=== PATIENT | female | born 2000 | race Caucasian/White ===

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

== ENCOUNTER 2019-08-08 13:56 | Inpatient (IN) ==
[2019-08-08] MEDS ORDERED: MoRPHine SULFATE 4 MG/ML 1 ML CARP\\VIAL IV STA (14:22)
[2019-08-08] MEDS ORDERED: ONDANSETRON INJ 2 MG/ML 2 ML VIAL IV STA ×2 (14:22→15:18)
[2019-08-08] MEDS ORDERED: SODIUM CHLORIDE 0.9% 1000ML 1,000 ML IV ONE ×2 (14:22→15:18)
--- NOTE | 2019-08-08 14:46 | Emergency Department Note ---
Entered by Seble Daily acting as a scribe for Margarito Oliva MD History of Present Illness General Chief complaint: Abdominal Pain Stated complaint: VOMITING,ABDOMINAL PAIN Time Seen by Provider: 08/08/19 14:08 Source: family (father) History of Present Illness Provider complaint: abdominal pain Onset (ago): hour(s) (this morning) Location: abdomen Pain Consistency: + constant Maximum Pain Intensity: 10 Relieved By: + none Associated symptoms: + nausea/vomiting The patient is a 18 year old who presents to the Emergency Room with complaints of constant abdominal pain. The patient's father reports that the patient has Prader-Willi syndrome. He states that he found her in her bed with vomiting around her this morning. He reports that she has had nausea and vomiting all afternoon. He states that she has had severe abdominal pain since then. He notes that she does not usually vomit. He mentions that the patient did not eat anything this morning. Home Medications Home Medications Medication Instructions Recorded Confirmed Type calcitriol 0.25 mcg capsule 0.25 mcg PO .q am cap 07/22/18 08/08/19 History gabapentin 300 mg capsule 300 mg PO TID 07/22/18 08/08/19 History levothyroxine 50 mcg capsule 50 mcg PO DAILY 07/22/18 08/08/19 History polyethylene glycol 3350 17 See Rx Instructions .ROUTE 05/20/19 08/08/19 Rx gram/dose oral powder .COMPLEX #510 gram cholecalciferol (vitamin D3) 1,000 unit PO DAILY 08/08/19 08/08/19 History [Vitamin D3] multivitamin 1 tab PO DAILY 08/08/19 08/08/19 History risperidone 0.25 mg PO BID 08/08/19 08/08/19 History risperidone 0.5 mg PO BID 08/08/19 08/08/19 History ziprasidone HCl 20 mg PO BID 08/08/19 08/08/19 History Allergies Allergy/AdvReac Type Severity Reaction Status Date / Time No Known Allergies Allergy Verified 08/08/19 14:37 Past Med/Surg History Medical History Autism (Chronic) Headache (Chronic) OCD (obsessive compulsive disorder) (Chronic) Prader-Willi syndrome (Chronic) Scoliosis (Chronic) Family History Father No problems noted. Mother No problems noted. Social History Preferred Language: Serbian Current Living Situation: Family Current Living Situation Comment: Mom, Dad, younger brother Smoking Status: Never smoker Hx Alcohol Use: No Hx Substance Use: No Childhood Exposure to Second-Hand Smoke: No Dental Care, Regularly: Yes Review of Systems See HPI for pertinent positives & negatives. and A total of 10 systems reviewed and were otherwise negative Physical Exam Vital Signs Vital Signs - 24 hr 08/08/19 13:59 08/08/19 14:49 08/08/19 17:05 Temperature 37.9 C H Temperature Source Oral Sepsis Recent Fever Within 48 Hours No Sepsis New/Unexplained Change in Mental Status No Sepsis Action Taken by Nursing No Action Required Pulse Rate 93 H Pulse Rate [Left Finger] 72 74 Respiratory Rate 20 15 25 H Respiratory Effort / Characteristics Non-Labored Non-Labored Respiratory Depth Normal Normal Respiratory Pattern Regular Regular Blood Pressure 108/77 Blood Pressure [Left Arm] 110/81 118/80 Blood Pressure Mean 87 Blood Pressure Mean [Left Arm] 90 92 Pulse Oximetry 98 97 94 Oxygen Delivery Method Room Air Room Air Room Air General: Non-ill appearing young female screaming and complaining of pain. HEENT: Normal cephalic atraumatic. Pupils are equal round and reactive to light. Extraocular movements are intact. Oropharynx is pink with moist mucous m embranes. No swelling of the mouth lips or tongue. Neck: Supple with a midline trachea. No meningeal signs or stiffness, no JVD or bruits. No Stridor. Chest: Clear to auscultation bilaterally. No wheezes or rhonchi. No increased work of breathing. Heart: regular rate and rhythm. Abdomen: Soft nontender, nondistended without rebound guarding or rigidity. Extremities: No cyanosis clubbing or edema. No calf tenderness or asymmetry Spine/Back. Non tender to palpation. No CVA tenderness Skin: Good turgor without rashes. Neurologic exam: Cranial nerves two through 12 are intact. Motor and sensation are intact and symmetrical throughout. Course 1413: The patient was evaluated in room C7, and a complete history and physical examination were performed. 1510: I reevaluated the patient and updated her family on her results. She is currently feeling better and is talking more. 1515: I reevaluated the patient and the patient is feeling better, I gave the patient fluids and anti-nausea medication. 1600: I reevaluated the patient and she appears comfortable. I ordered an NG tube and discussed with her father, possible hospitals for transfer. 1626: I discussed the patient's case with Dr. Block- General Surgery, he recommends that the patient be admitted to medicine. 1658: I discussed the patient's case with Dr. Garcia- [facility] Hospitalist, she will accept the patient for further evaluation. 1715: The NG tube was placed and the patient tolerated it well. There was a large amount of product and the patient vomited. 1755: I reevaluated the patient and there was over a liter of vomit in the NG tube, the family wants me to talk to a Prader-willi specialist. Administered Medications Ioversol (Optiray 320 100ml) 92 ml IV ONCE PRN PRN Reason: Interaction Checking Stop: 08/12/19 15:30 Last Admin: 08/08/19 15:31 Dose: 92 ml Documented by: [id number] Discontinued Medications Sodium Chloride (Nss 1000ml) 1,000 mls @ 999 mls/hr IV .Q1H1M ONE Stop: 08/08/19 15:22 Last Infusion: 08/08/19 16:25 Dose: 0 mls/hr Documented by: [id number] Admin: 08/08/19 14:40 Dose: 999 mls/hr Documented by: [id number] Sodium Chloride (Nss 1000ml) 1,000 mls @ 999 mls/hr IV .Q1H1M ONE Stop: 08/08/19 16:18 Last Infusion: 08/08/19 16:51 Dose: 0 mls/hr Documented by: [id number] Admin: 08/08/19 15:44 Dose: 999 mls/hr Documented by: [id number] Morphine Sulfate (Morphine Sulfate) 4 mg IV NOW STA Stop: 08/08/19 14:23 Last Admin: 08/08/19 14:38 Dose: 4 mg Documented by: [id number] Ondansetron HCl (Zofran) 4 mg IV NOW STA Stop: 08/08/19 14:23 Last Admin: 08/08/19 14:38 Dose: 4 mg Documented by: [id number] Ondansetron HCl (Zofran) 4 mg IV NOW STA Stop: 08/08/19 15:19 Last Admin: 08/08/19 15:44 Dose: 4 mg Documented by: [id number] Medical Decision Making Differential Diagnosis Differential diagnoses include but are not limited to dehydration, bowel obstruction, and electrolyte and metabolic abnormality. Medical Records Attestation: I reviewed the patient's medical records. Home Medications Current Medication List: was personally reviewed by me Laboratory Data Attestation: I reviewed the patient's lab results. Result diagrams: 08/08/19 14:36 08/08/19 14:36 Lab Results 08/08/19 08/08/19 08/08/19 Range/Units 14:36 14:36 14:36 WBC 11.61 H (4.8-10.8) K/uL RBC 4.76 (4.2-5.4) M/uL Hgb 14.3 (12.0-16.0) g/dL Hct 43.1 (37-47) % MCV 90.5 (80-100) fL MCH 30.0 (25-34) pg MCHC 33.2 (32-36) g/dL RDW Std Deviation 43.5 (36.4-46.3) fL RDW Coeff of Marlys 13.1 (11.5-14.5) % Plt Count 241 (130-400) K/uL MPV 10.1 (7.4-10.4) fL Immature Gran % (Auto) 0.3 % Neut % (Auto) 90.9 % Lymph % (Auto) 5.3 % [place] % (Auto) 3.4 % Eos % (Auto) 0.0 % Baso % (Auto) 0.1 % Immature Gran # (Auto) 0.03 H (0.00-0.02) K/uL Neut # (Auto) 10.56 H (1.4-6.5) K/uL Lymph # (Auto) 0.61 L (1.2-3.4) K/uL [place] # (Auto) 0.40 (0.11-0.59) K/uL Eos # (Auto) 0.00 (0-0.5) K/uL Baso # (Auto) 0.01 (0-0.2) K/uL Sodium 144 (136-145) mmol/L Potassium 3.2 L (3.5-5.1) mmol/L Chloride 106 (98-107) mmol/L Carbon Dioxide 30 (21-32) mmol/L Anion Gap 8.0 (3-11) BUN 9 (7-18) mg/dl Creatinine 0.69 (0.6-1.2) mg/dl Est Cr Clr Drug Dosing 113.2 ml/min Est GFR ( Amer) 146.3 Est GFR (Non-Af Amer) 126.2 BUN/Creatinine Ratio 13.4 (10-20) Glucose 156 H (70-99) mg/dl Calcium 10.4 H (8.5-10.1) mg/dl Total Bilirubin 0.4 (0.2-1) mg/dl AST 12 L (15-37) U/L ALT 19 (12-78) U/L Alkaline Phosphatase 108 (45-117) U/L Total Protein 9.2 H (6.4-8.2) gm/dl Albumin 4.5 (3.4-5.0) gm/dl Globulin 4.7 H (2.5-4.0) gm/dl Albumin/Globulin Ratio 1.0 (0.9-2) Lipase 189 (73-393) U/L HCG, Qual Negative (Negative) Imaging Data Radiologist's Impression: Radiology results as stated below per my review and the radiologist's interpretation: CT abd pelvis IV con only CLINICAL HISTORY: 18 years-old Female presenting with mid abdominal pain, clinical concern for bowel obstruction. TECHNIQUE: Multidetector CT of the abdomen and pelvis was performed after the administration of intravenous contrast. IV contrast: 93 mL of Optiray 320. One or more dose lowering techniques were used consistent with the principles of ALARA (as low as reasonably achievable), including automatic exposure control, mA or kV adjustment to individual patient size, and/or use of iterative reconstruction. COMPARISON: None. CT DOSE (mGy.cm): The estimated cumulative dose is 268.93 mGy.cm. FINDINGS: Animal Pathologist topogram: Moderate levoscoliosis centered at the lower thoracic spine. Lung bases: Normal heart size. No pericardial or pleural effusion. Minimal patchy groundglass opacity at the lung bases with mosaic attenuation, possibly dependent changes. Liver: Normal morphology. No liver lesion. Patent hepatic vasculature. Biliary: No intrahepatic or extrahepatic biliary ductal dilatation. Normal gallbladder. Pancreas: Moderate parenchymal atrophy. Spleen: Normal. Adrenal glands: Normal. Kidneys and ureters: Normal. No hydronephrosis. Bladder: Circumferential bladder wall thickening. Pelvic organs: Uterus appears atrophic. Ovaries appears severely atrophic. This is unexpected for the patient's age. Bowel: Moderate stool burden throughout normal caliber colon though the left colon is decompressed. The appendix is normal. The stomach is severely distended. Circumferential wall thickening of the distal esophagus. The proximal duodenum is also distended to the level of the superior mesenteric artery, where there is focal stenosis. An abnormally acute SMA angle is noted. Peritoneal cavity: No free fluid or intraperitoneal gas. Lymph nodes: No enlarged lymph nodes in the abdomen or pelvis. Vasculature: Aorta and IVC patent and normal in caliber. Abdominal wall: Normal. Musculoskeletal: Scoliotic curvature of the spine. IMPRESSION: 1. Severely distended stomach and proximal duodenum with abrupt transition point at the level of the SMA. This is evidence of SMA syndrome. Given the presence of scoliosis, it should be noted that application of body casts can be associated with SMA syndrome. 2. Atrophic appearing uterus and ovaries. This may suggest a congenital anomaly. Consider outpatient pelvic ultrasound for further assessment. 3. Circumferential bladder wall thickening. This could be due to underdistention or cystitis. Correlate with urinalysis. 4. Scoliosis. Electronically signed by: Amado Betancourt M.D. 08/08/2019 3:52 PM Blood Pressure Blood Pressure Findings: Normal blood pressure Blood Pressure Disposition: did not require urgent referral MDM Narrative This patient comes in as described above. She was placed in room C7. She is here for treatment and evaluation of abdominal pain and vomiting. She does have history of Prader-Willi and does not typically vomit. She does have a high pain tolerance. She is difficult to assess her as she is writhing around in pain. Her abdomen does not appear to be rigid. I did order IV access as well as a liter fluid boluses and morphine 4 mg IV and Zofran 4 mg IV as well as blood work. She was reassessed. She looks quite a bit better. She is now awake and conversant. She still does have some nausea. Her white counts only mildly elevated. Potassium is mildly low but she has no other significant electrolyte or metabolic abnormalities nothing to suggest liver gallbladder pancreas disease. I did order a CT scan with IV contrast. It shows significant dilation and significant distended stomach and proximal duodenum with abrupt transition point level SMA consistent with SMA syndrome. I discussed this with Dr. Osuna, our surgeon on-call, who recommended NG tube and hydration. Consult Dr. Garcia and saw the patient in the ER as well. I also talked to Dr. Bill Sauceda [phone] who is on-call for the Prader-Willi syndrome foundation. He had several recommendations. He agreed with the treatment that we were doing in terms of the NG tube placement and fluids. He did recommend if the patient gets worse in any way to have a low threshold to get a CAT scan to rule out perforation. He said that the patients with Prader-Willi have a high pain threshold and also have low muscle tone. He can be reached at the cell phone number above for any further questions throughout the patient stay. We did place an NG tube which produced a large amount of brown emesis. She will be admitted for further treatment and evaluation Impression & Plan Vomiting, Prader-Willi syndrome, Dehydration, Gastrointestinal obstruction Discharge Plan Visit Data Chief Complaint: Abdominal Pain Stated Complaint: VOMITING,ABDOMINAL PAIN ED Provider: Margarito Oliva Discharge Problem: Vomiting, Prader-Willi syndrome, Dehydration, Gastrointestinal obstruction Patient Disposition: Being Evaluated by Hospitalist Forms Stand Alone Forms: My [facility] Prescriptions Prescriptions: No Action calcitriol 0.25 mcg capsule 0.25 mcg PO .q am RF: 0 gabapentin 300 mg capsule 300 mg PO TID RF: 0 levothyroxine 50 mcg capsule 50 mcg PO DAILY RF: 0 polyethylene glycol 3350 17 gram/dose powder See Rx Instructions .ROUTE .COMPLEX Qty: 510 RF: 3 multivitamin Tablet 1 tab PO DAILY RF: 0 risperidone 0.25 mg tablet 0.25 mg PO BID RF: 0 ziprasidone HCl 20 mg capsule 20 mg PO BID RF: 0 risperidone 0.5 mg tablet 0.5 mg PO BID RF: 0 cholecalciferol (vitamin D3) [Vitamin D3] 1,000 unit Capsule 1,000 unit PO DAILY RF: 0 Referrals Referrals: Jania Franklin MD [Primary Care Provider] - The scribe's documentation has been prepared under my direction and personally reviewed by me in its entirety. I confirm that the note above accurately r eflects all work, treatment, procedures, and medical decision making performed by me.
[2019-08-08 14:52] LABS: Basophils # (auto) 0.01 K/uL (0-0.2); Basophils % (auto) 0.1 %; Hematocrit (blood only) 43.1 % (37-47); Hemoglobin 14.3 g/dL (12.0-16.0); Immature Granulocytes # (auto) 0.03 K/uL (0.00-0.02); Immature Granulocytes % (auto) 0.3 %; Lymphocytes # (auto) 0.61 K/uL (1.2-3.4); Lymphocytes % (auto) 5.3 %; Mean Corpuscular Hgb Conc 33.2 g/dL (32-36); Mean Corpuscular Volume 90.5 fL (80-100); Mean Platelet Volume 10.1 fL (7.4-10.4); Monocytes % (auto) 3.4 %; Neutrophils # (auto) 10.56 K/uL (1.4-6.5); Neutrophils % (auto) 90.9 %; Platelet Count 241 K/uL (130-400); RDW Coefficient of Variation 13.1 % (11.5-14.5); RDW Standard Deviation 43.5 fL (36.4-46.3); Red Blood Count 4.76 M/uL (4.2-5.4); White Blood Count 11.61 K/uL (4.8-10.8)
[2019-08-08 15:08] LABS: Albumin Level 4.5 gm/dl (3.4-5.0); BUN Creatinine Ratio 13.4 (10-20); Calcium 10.4 mg/dl (8.5-10.1); Creatinine Clr Calc Pharmacy 113.2 ml/min; Est GFR (African American) 146.3; Est GFR (Non-African American) 126.2; Potassium 3.2 mmol/L (3.5-5.1)
[2019-08-08 15:11] LABS: Bilirubin,Total 0.4 mg/dl (0.2-1); Globulin 4.7 gm/dl (2.5-4.0); Total Protein 9.2 gm/dl (6.4-8.2)
[2019-08-08 15:13] LABS: Pregnancy Test, Serum Negative (Negative)
[2019-08-08] MEDS ORDERED: IOVERSOL 100ml IV PRN (15:31)
--- NOTE | 2019-08-08 15:53 | CT Scan Report ---
CT abd pelvis IV con only CLINICAL HISTORY: 18 years-old Female presenting with mid abdominal pain, clinical concern for bowel obstruction. TECHNIQUE: Multidetector CT of the abdomen and pelvis was performed after the administration of intra venous contrast. IV contrast: 93 mL of Optiray 320. One or more dose lowering techniques were used co nsistent with the principles of ALARA (as low as reasonably achievable), including automatic exposure control, mA or kV adjustment to individual patient size, and/or use of iterative reconstruction. COMPARISON: None. CT DOSE (mGy.cm): The estimated cumulative dose is 268.93 mGy.cm. FINDINGS: Overedge Machine Operator topogram: Moderate levoscoliosis centered at the lower thoracic spine. Lung bases: Normal heart size. No pericardial or pleural effusion. Minimal patchy groundglass opacity at the lung bases with mosaic attenuation, possibly dependent changes. Liver: Normal morphology. No liver lesion. Patent hepatic vasculature. Biliary: No intrahepatic or extrahepatic biliary ductal dilatation. Normal gallbladder. Pancreas: Moderate parenchymal atrophy. Spleen: Normal. Adrenal glands: Normal. Kidneys and ureters: Normal. No hydronephrosis. Bladder: Circumferential bladder wall thickening. Pelvic organs: Uterus appears atrophic. Ovaries appears severely atrophic. This is unexpected for the patient's age. Bowel: Moderate stool burden throughout normal caliber colon though the left colon is decompressed. T he appendix is normal. The stomach is severely distended. Circumferential wall thickening of the dist al esophagus. The proximal duodenum is also distended to the level of the superior mesenteric artery, where there is focal stenosis. An abnormally acute SMA angle is noted. Peritoneal cavity: No free fluid or intraperitoneal gas. Lymph nodes: No enlarged lymph nodes in the abdomen or pelvis. Vasculature: Aorta and IVC patent and normal in caliber. Abdominal wall: Normal. Musculoskeletal: Scoliotic curvature of the spine. IMPRESSION: 1. Severely distended stomach and proximal duodenum with abrupt transition point at the level of the SMA. This is evidence of SMA syndrome. Given the presence of scoliosis, it should be noted that appl ication of body casts can be associated with SMA syndrome. 2. Atrophic appearing uterus and ovaries. This may suggest a congenital anomaly. Consider outpatient pelvic ultrasound for further assessment. 3. Circumferential bladder wall thickening. This could be due to underdistention or cystitis. Correl ate with urinalysis. 4. Scoliosis. Electronically signed by: Amado Betancourt M.D. 08/08/2019 3:52 PM
--- NOTE | 2019-08-08 17:21 | History & Physical Report ---
Date of Service August 08, 2019 Assessment & Plan (1) Vomiting: CTAP noted for possible SMA syndrome Surgery recs for NGT and monitoring test neg Surgery and GI c/s pending ED spoke with Dr. Bill Sauceda [phone] who is on-call for the Prader-Willi syndrome foundation. He agreed with the treatment that we were doing in terms of the NG tube placement and fluids. Further recs: if the patient gets worse in any way to have a low threshold to get a CAT scan to rule out perforation. Pts with Prader-Willi have a high pain threshold and also have low muscle tone. He can be reached at the cell phone number above for any further questions throughout the patient stay. Lengthy discussion with pt and family about the importance of no PO intake at this time. All voiced agreement, but father did state that this will be difficult to manage (2) Hypokalemia: Likely related to emesis Replace and monitor (3) Prader-Willi syndrome: Complications can include gastric rupture due to increased PO intake Not seen on CTAP OCD, autism: continue home meds (4) Hypothyroid: continue home meds (5) DVT prophylaxis: SCDs History of Present Illness Primary Care Provider: Jania Franklin MD 18 y/o F c/o n/v. Pt has Prader Willi syndrome and has only had one episode of emesis in her life. She started to feel a bit unwell last night after dinner and then spent the day today with n/v and abd pain. When it persisted, she was brought to the ED. Pt denies fever, SOB, chest pain, c/d, LE pain or swelling. Abd pain is diffuse. She feels her breathing is limited with the NGT, but no noelle SOB prior to or since placement per parents. ED spoke with Dr. Bill Sauceda [phone] who is on-call for the Prader-Willi syndrome foundation. He agreed with the treatment that we were doing in terms of the NG tube placement and fluids. Further recs: if the patient gets worse in any way to have a low threshold to get a CAT scan to rule out perforation. Pts with Prader-Willi have a high pain threshold and also have low muscle tone. He can be reached at the cell phone number above for any further questions throughout the patient stay. Pt was seen on 08/04 for routine wellness exam. There were no new concerns from PCP, however it had been noted that she was having increased somnolence with risperidone tx. This was stoped and ziprasidone was started on 08/05. Her gabapentin was decreased from 400mg TID to 300mg TID as well. Allergies Allergy/AdvReac Type Severity Reaction Status Date / Time No Known Allergies Allergy Verified 08/08/19 14:37 Home Medications Home Medications Medication Instructions Recorded Confirmed Type calcitriol 0.25 mcg capsule 0.25 mcg PO .q am cap 07/22/18 08/08/19 History gabapentin 300 mg capsule 300 mg PO TID 07/22/18 08/08/19 History levothyroxine 50 mcg capsule 50 mcg PO DAILY 07/22/18 08/08/19 History polyethylene glycol 3350 17 See Rx Instructions .ROUTE 05/20/19 08/08/19 Rx gram/dose oral powder .COMPLEX #510 gram cholecalciferol (vitamin D3) 1,000 unit PO DAILY 08/08/19 08/08/19 History [Vitamin D3] multivitamin 1 tab PO DAILY 08/08/19 08/08/19 History risperidone 0.25 mg PO BID 08/08/19 08/08/19 History risperidone 0.5 mg PO BID 08/08/19 08/08/19 History ziprasidone HCl 20 mg PO BID 08/08/19 08/08/19 History Past Med/Surg History Medical History Autism (Chronic) Headache (Chronic) OCD (obsessive compulsive disorder) (Chronic) Prader-Willi syndrome (Chronic) Scoliosis (Chronic) Family History Father No problems noted. Mother No problems noted. Social History Preferred Language: Indonesian Current Living Situation: Family Current Living Situation Comment: Mom, Dad, younger brother Smoking Status: Never smoker Hx Alcohol Use: No Hx Substance Use: No Childhood Exposure to Second-Hand Smoke: No Dental Care, Regularly: Yes Review of Systems Review of Systems: Pertinent positives and negatives reviewed in HPI--all others negative Physical Exam Constitutional: WD/WN, vitals as above Eyes: normal visual betts by confrontation and + anicteric sclerae Neck: normal visual inspection and trachea midline Respiratory: normal respiratory effort, lungs clear to auscultation Cardiovascular: Rate/Rhythm: regular rate and regular rhythm Gastrointestinal (Abdomen): Inspection/Auscultation: + abdomen distended Percussion/Palpation: + abdomen tender (diffuse) and abdomen soft Musculoskeletal: Head/Neck/Chest: normocephalic and head atraumatic negative for edema, peripheral pulses intact Skin: no rashes, warm and dry Neurologic: awake; not confused Speech / Cognition: normal speech Psychiatric: Orientation: oriented to person Eye Contact: good eye contact Affect: + tearful affect speech c/w developmental delay Results & Data Vital Signs (Past 12 Hours) Vital Signs Temp Pulse Pulse Resp BP BP Pulse Ox 08/08/19 14:49 72 15 110/81 97 08/08/19 13:59 37.9 C H 93 H 20 108/77 98 Diagnostic Findings CTAP: 1. Severely distended stomach and proximal duodenum with abrupt trans ition point at the level of the SMA. This is evidence of SMA syndrome. Given the presence of scoliosis, it should be noted that application of body casts can be associated with SMA syndrome. 2. Atrophic appearing uterus and ovaries. This may suggest a congenital anomaly. Consider outpatient pelvic ultrasound for further assessment. 3. Circumferential bladder wall thickening. This could be due to underdistention or cystitis. Correlate with urinalysis. 4. Scoliosis. PG Care Time/CCT Total # of Minutes Spent Total Time Spent with Patient: Total time spent is greater than 50% in coordination of care (as documented) at patient's floor/unit and/or counseling patient: (1) Vomiting Nausea presence: with nausea Vomiting Intractability: intractable Vomiting type: unspecified Qualified Code(s): R11.2 - Nausea with vomiting, unspecified
[2019-08-08 18:38] LABS: Appearance Urine Clear (Clear); Bilirubin Urine Negative (Negative); Blood Urine Negative (Negative); Color Urine Yellow; Glucose Urine UA Negative (Negative); Ketones Urine Negative (Negative); Leukocyte Esterase Urine Negative (Negative); Nitrite Urine Negative (Negative); Specific Gravity Urine <= 1.005 (1.000-1.030); Urobilinogen Urine Negative (Negative); pH Urine >= 9.0 (4.5-7.5)
[2019-08-08 19:00] LABS: Protein Urine Negative (Negative)
[2019-08-08 19:01] LABS: Bacteria Urine Negative (Negative); RBC Urine 0-4 /hpf (0-4)
[2019-08-08] MEDS ORDERED: ACETAMINOPHEN 325 MG TAB PO PRN (19:07)
[2019-08-08] MEDS ORDERED: ONDANSETRON INJ 2 MG/ML 2 ML VIAL IV PRN (19:07)
[2019-08-08] MEDS ORDERED: MAGNESIUM HYDROXIDE SUSP 30 ML UDC PO PRN (19:07)
[2019-08-08] MEDS: D5NSS + 20MEQ KCL 20 MEQ/1,000 ML BAG IV SCH (19:56)
[2019-08-08] MEDS: risperiDONE 0.5 MG TABLET PO SCH (20:02)
[2019-08-08] MEDS: GABAPENTIN 300 MG CAP PO SCH (20:02)
[2019-08-08] MEDS: ZIPRASIDONE HCL 20 MG CAP PO SCH (20:03)
[2019-08-08] MEDS ORDERED: risperiDONE 0.5 MG TABLET PO SCH (21:00)
[2019-08-09] MEDS ORDERED: LORazepam 0.5 MG/1 ML VIAL IV STA (03:32)
[2019-08-09] MEDS ORDERED: MoRPHine SULFATE 2 MG/ML CARP IV PRN (03:36)
[2019-08-09] MEDS: LEVOTHYROXINE SODIUM 50 MCG TABLET PO SCH (05:40)
[2019-08-09 07:56] LABS: Hematocrit (blood only) 33.6 % (37-47); Hemoglobin 10.7 g/dL (12.0-16.0); Immature Granulocytes # (auto) 0.02 K/uL (0.00-0.02); Immature Granulocytes % (auto) 0.2 %; Lymphocytes # (auto) 1.92 K/uL (1.2-3.4); Lymphocytes % (auto) 22.6 %; Mean Corpuscular Hgb Conc 31.8 g/dL (32-36); Mean Corpuscular Volume 94.4 fL (80-100); Monocytes # (auto) 0.88 K/uL (0.11-0.59); Monocytes % (auto) 10.4 %; Neutrophils # (auto) 5.68 K/uL (1.4-6.5); Neutrophils % (auto) 66.8 %; Platelet Count 169 K/uL (130-400); RDW Coefficient of Variation 13.6 % (11.5-14.5); RDW Standard Deviation 47.2 fL (36.4-46.3); Red Blood Count 3.56 M/uL (4.2-5.4)
[2019-08-09 08:12] LABS: BUN Creatinine Ratio 19.3 (10-20); Blood Urea Nitrogen 10 mg/dl (7-18); Calcium 8.8 mg/dl (8.5-10.1); Carbon Dioxide 27 mmol/L (21-32); Chloride 118 mmol/L (98-107); Creatinine Clr Calc Pharmacy 156.6 ml/min; Est GFR (African American) > 150.0; Est GFR (Non-African American) 138.5; Glucose 124 mg/dl (70-99); Potassium 3.6 mmol/L (3.5-5.1); Sodium 149 mmol/L (136-145)
[2019-08-09] MEDS: D5NSS + 20MEQ KCL 20 MEQ/1,000 ML BAG IV SCH ×2 (08:26→22:01)
[2019-08-09 08:45] LABS: T4 Free Thyroxine 0.88 ng/dl (0.8-1.6)
--- NOTE | 2019-08-09 09:41 | Surgery Consultation ---
Date of Consultation August 09, 2019 Assessment & Plan (1) Gastrointestinal obstruction: She was seen with Dr. Block. Will check KUB and evaluate SMA by U/S. No acute surgical issues. No need to replace NG at this time. Can have ice chips for now and consider clear diet depending on GI recommendations/plans. History of Present Illness Attending Physician: Leigha Garcia DO History of Present Illness 18 y/o female with Prader-Willi syndrome admitted overnight for vomiting multiple times during the day. NG tube was placed, replaced, and she pulled the tube out again overnight. No further vomiting this morning. She is hungry, wants to eat. Total 2500 cc NG drainage over about 12 hours while the tube was in. No previous abdominal surgery. Her weight has fluctuated over the past year as her living arrangements have changed: was 130s then increased to 170s and now approx 117 lbs. Allergies Allergy/AdvReac Type Severity Reaction Status Date / Time No Known Allergies Allergy Verified 08/08/19 14:37 Home Medications Home Medications Medication Instructions Recorded Confirmed Type calcitriol 0.25 mcg capsule 0.25 mcg PO .q am cap 07/22/18 08/08/19 History gabapentin 300 mg capsule 300 mg PO TID 07/22/18 08/08/19 History levothyroxine 50 mcg capsule 50 mcg PO DAILY 07/22/18 08/08/19 History polyethylene glycol 3350 17 See Rx Instructions .ROUTE 05/20/19 08/08/19 Rx gram/dose oral powder .COMPLEX #510 gram cholecalciferol (vitamin D3) 1,000 unit PO DAILY 08/08/19 08/08/19 History [Vitamin D3] multivitamin 1 tab PO DAILY 08/08/19 08/08/19 History risperidone 0.25 mg PO BID 08/08/19 08/08/19 History risperidone 0.5 mg PO BID 08/08/19 08/08/19 History ziprasidone HCl 20 mg PO BID 08/08/19 08/08/19 History Patient History Medical History Autism (Chronic) Headache (Chronic) OCD (obsessive compulsive disorder) (Chronic) Prader-Willi syndrome (Chronic) Scoliosis (Chronic) Family History Father No problems noted. Mother No problems noted. Social History Preferred Language: Vietnamese Communication Ability: Effective [employer] Employee Required: No Beliefs That Will Affect Care: None Current Living Situation: Family Current Living Situation Comment: Mom, Dad, younger brother Feels Safe at Home: Yes Safety Concerns: Feels Safe At This Time Smoking Status: Never smoker Hx Alcohol Use: No Hx Substance Use: No Childhood Exposure to Second-Hand Smoke: No Dental Care, Regularly: Yes Review of Systems Gastrointestinal: no abdominal pain, no coffee ground emesis and no hematemesis Physical Exam Constitutional: no acute distress Gastrointestinal (Abdomen): Inspection/Auscultation: abdomen not distended Percussion/Palpation: abdomen soft; abdomen nontender Results & Data Vital Signs (Past 12 Hours) Vital Signs Temp Pulse Pulse Resp BP Pulse Ox 08/09/19 08:00 36.6 C 77 18 89/50 L 96 08/09/19 03:24 36.9 C 94 H 18 95/70 L 95 08/08/19 23:58 37.1 C 62 18 94/54 L 93 08/08/19 23:21 85 PG Care Time/CCT Total # of Minutes Spent Total Time Spent with Patient: Total time spent is greater than 50% in coordination of care (as documented) at patient's floor/unit and/or counseling patient:
--- NOTE | 2019-08-09 10:08 | XRay Report ---
KUB CLINICAL HISTORY: gastric obstruction COMPARISON STUDY: CT of the abdomen and pelvis August 08, 2019. FINDINGS: Excreted contrast from prior CT is now noted within the bladder. There is no evidence for a small or large bowel obstruction. Stomach is suboptimally assessed by radiography however gastric di stention is likely improved since exam of August 08, 2019. IMPRESSION: 1. No evidence for a bowel obstruction. 2. Suspected interval decrease in gastric distention, suboptimally assessed by radiography. Electronically signed by: Garett Resendez M.D. 08/09/2019 10:07 AM
--- NOTE | 2019-08-09 10:37 | Ultrasound Report ---
US duplex mesenteric CLINICAL HISTORY: r/o SMA syndrome. Vomiting. Abdominal pain. COMPARISON STUDY: CT of the abdomen and pelvis August 08, 2019. TECHNIQUE: Grayscale and color and duplex Doppler sonography of the mesenteric vessels was performed. FINDINGS: No elevated velocities were identified. The peak systolic velocity within the celiac axis w as 102 cm/s. Peak systolic velocity within the superior mesenteric artery was 187 cm/s although porti ons of the superior mesenteric artery were obscured. The peak systolic velocity within the hepatic ar zain was 94 cm/s and the peak systolic velocity within the splenic artery was 63 cm/s. IMPRESSION: 1. No evidence for stenosis within the mesenteric vessels. 2. Portions of the superior mesenteric artery obscured and better depicted on CT of August 08 9. Electronically signed by: Garett Resendez M.D. 08/09/2019 10:34 AM
[2019-08-09] MEDS: risperiDONE 0.5 MG TABLET PO SCH ×2 (10:55→20:54)
[2019-08-09] MEDS: CALCITRIOL 0.25 MCG CAPSULE PO SCH (10:55)
[2019-08-09] MEDS: GABAPENTIN 300 MG CAP PO SCH ×3 (10:55→20:54)
[2019-08-09] MEDS: MULTIVITAMIN TAB PO SCH (10:56)
[2019-08-09] MEDS: POLYETHYLENE (MIRALAX) 17 GM PACK PO SCH (10:56)
[2019-08-09] MEDS: ZIPRASIDONE HCL 20 MG CAP PO SCH ×2 (10:56→20:54)
[2019-08-09] MEDS: CHOLECALCIFEROL 1,000 UNITS TAB PO SCH (10:56)
--- NOTE | 2019-08-09 14:00 | Family Medicine Progress Note ---
Date of Service August 09, 2019 Assessment & Plan (1) Vomiting: Patient is a 18 year old female PMHx Prader-Willi Syndrome, Hypothyroidism, OCD, Autism who presented initially with abdominal pain, nausea, and vomiting. Vomiting -Patient had brown, non-bloody emesis at home the morning of 08/08/19 -In ED NG tube placement removed a a fair amount of brown, non-bloody emesis that continued while on the floor. -Patient had removed her NG tube around 03:00 the morning of 08/09/19 -CT scan in ED showed ?SMA Syndrome as cause of patient's discomfort and vomiting. -No new incidents of vomiting since initial, patient notes she is not nauseous. -?SMA Syndrome or SBO as cause of vomiting. -Surgery consulted, recs appreciated. -No need to replace NG tube at this time. -No surgical need at this time. -KUB to evaluate SBO - Negative -U/S to evaluate SMA - No evidence for stenosis of mesenteric arteries -Patient can have Ice Chips, may advance to clear liquids pending GI Recs -GI consulted, recs appreciated Hypokalemia -Patient's K 3.2 on arrival, likely secondary to vomiting -Repleting with D5W + 20meq KCl -Morning K at 3.6 Prader-Willi Syndrome -?Need for CT scan if symptoms worsen secondary to sequela of Prader-Willi Syndrome -PWS patients have high pain threshold and low muscle tone - may lead to bowel perforation - not seen on CT scan initial. Hypothyroidism -Continue home Levothyroxine OCD/Autism -Continue home Rispiridone, Ziprasidone, and Gabapentin -Spoke with parents about use of both Rispiridone and Ziprasidone and they stated this was only for the week that both would be used, patient in the process of switching entirely from Respiridone to Ziprasidone. FEN/GI - NPO, D5W w/ 20meq KCl Code - Full DVT - SCD (2) Hypokalemia: (3) Prader-Willi syndrome: (4) Hypothyroid: (5) OCD (obsessive compulsive disorder): (6) Autism: Supervising Physician Co-Signing Physician Notes I saw the patient current the resident physician and confirmed esqueda portion of the history and physical exam. I agree with the impression and plan as noted above. Discussed results as noted above with the mother and father at bedside; surgery has seen the patient and gastroenterology consultation is pending at this time. 1) ice chips with p.o. medications 2) gastroenterology consultation today 3) pending gastroenterology consultation, continue to do well, could consider clear liquid diet trial 4) gastroparesis is a concern given the patient's history of Prader-Willi syndrome, however this simply could represent a viral gastroenteritis as well. Will await GI input and manage conservatively. Subjective Patient is a 18 year old female with PMHx of Prader Willi Syndrome, OCD, Autism, Hypothyroid, and Scoliosis who presented to the ED initially for severe abdominal pain with nausea and vomiting x 1 days duration. Parents had noted that yesterday morning they found the patient covered in her own vomit (non- bloody and brown emesis) in bed. Patient stated that she had vomited earlier that morning (03:00) but had not wanted to bother anyone about it. Her parents attempted to feed her toast and tea, but patient noted lack of appetite, nausea, and abdominal pain. Upon presentation to the ED, she was noted to have severe abdominal pain and was given Morphine and Zofran which helped to alleviate most of her pain. CT abdomen was also taken which revealed a severely distended stomach proximal to the duodenum with abrupt transition point at the level of the SMA. Patient continued to have abdominal distention and Surgery was consult ed which recommend NG tube suction and fluid administration. Dr. Bill Sauceda [phone], on-call for the [employer], was called who agreed to the NG tube placement and recommended that if symptoms worsened for the patient that another CT scan be ordered to r/o bowel perforation. Upon placement of the NG tube a large amount of brown, non-bloody emesis was removed from the patient. Patient was then admitted to the floor. This morning, patient states that she had pulled the NG tube out herself around 03:00 because it was irritating her throat. She had refused to have the NG tube replaced after this. Currently the patient states that she is feeling significantly better and that she is no longer having abdominal pain, discomfort, distention, nausea, or vomiting. She does note passing of flatulence and that she had a bowel movement. Review of Systems Constitutional: no fever, no chills and no weakness Eyes: no eye pain and no worsening vision Ear, Nose, Mouth, Throat: no ear pain, no tinnitus and no dizziness Respiratory: no cough, no dyspnea and no pain on inspiration Cardiovascular: no chest pain, no dyspnea, no palpitations and no lightheadedness Gastrointestinal: no abdominal pain, no bloating, no nausea, no vomiting, no hematemesis, no cramping, no constipation, no blood in stools and no melena Genitourinary: no dysuria, no difficulty urinating, no urinary hesitancy and no hematuria Integumentary: no rash Neurologic: no dizziness and no headache(s) Physical Exam Constitutional: WD/WN, vitals as above Eyes: PERRL, conjunctivae normal, anicteric sclerae ENMT: external ear and nose normal, oropharynx normal Neck: trachea midline, no thyromegaly Respiratory: normal respiratory effort, lungs clear to auscultation Cardiovascular: RRR, no murmur, no edema Gastrointestinal (Abdomen): Inspection/Auscultation: abdomen normal to inspection and + hyperactive bowel sounds; abdomen not distended and no high- pitched sounds Percussion/Palpation: abdomen soft; abdomen nontender, no guarding, abdomen not rigid, no abdominal mass and abdomen not firm Results & Data Vital Signs (Past 12 Hours) Vital Signs Temp Pulse Resp BP Pulse Ox 08/09/19 12:15 36.9 C 64 18 93/56 L 96 08/09/19 08:00 36.6 C 77 18 89/50 L 96 08/09/19 03:24 36.9 C 94 H 18 95/70 L 95 Laboratory Results Abnormal lab results 08/08/19 08/08/19 08/08/19 Range/Units 14:36 14:36 17:45 WBC 11.61 H (4.8-10.8) K/uL RBC (4.2-5.4) M/uL Hgb (12.0-16.0) g/dL Hct (37-47) % MCHC (32-36) g/dL RDW Std Deviation (36.4-46.3) fL Immature Gran # (Auto) 0.03 H (0.00-0.02) K/uL Neut # (Auto) 10.56 H (1.4-6.5) K/uL Lymph # (Auto) 0.61 L (1.2-3.4) K/uL [place] # (Auto) (0.11-0.59) K/uL Sodium (136-145) mmol/L Potassium 3.2 L (3.5-5.1) mmol/L Chloride (98-107) mmol/L Creatinine (0.6-1.2) mg/dl Glucose 156 H (70-99) mg/dl Calcium 10.4 H (8.5-10.1) mg/dl AST 12 L (15-37) U/L Total Protein 9.2 H (6.4-8.2) gm/dl Globulin 4.7 H (2.5-4.0) gm/dl TSH (0.300-4.500) uIu/ml Urine pH >= 9.0 H (4.5-7.5) Urine WBC 5-10 H (0-5) /hpf Ur Epithelial Cells 10-20 H (0-5) /lpf 08/09/19 08/09/19 Range/Units 07:07 07:07 WBC (4.8-10.8) K/uL RBC 3.56 L (4.2-5.4) M/uL Hgb 10.7 L D (12.0-16.0) g/dL Hct 33.6 L (37-47) % MCHC 31.8 L (32-36) g/dL RDW Std Deviation 47.2 H (36.4-46.3) fL Immature Gran # (Auto) (0.00-0.02) K/uL Neut # (Auto) (1.4-6.5) K/uL Lymph # (Auto) (1.2-3.4) K/uL [place] # (Auto) 0.88 H (0.11-0.59) K/uL Sodium 149 H (136-145) mmol/L Potassium (3.5-5.1) mmol/L Chloride 118 H (98-107) mmol/L Creatinine 0.52 L (0.6-1.2) mg/dl Glucose 124 H (70-99) mg/dl Calcium (8.5-10.1) mg/dl AST (15-37) U/L Total Protein (6.4-8.2) gm/dl Globulin (2.5-4.0) gm/dl TSH 0.157 L (0.300-4.500) uIu/ml Urine pH (4.5-7.5) Urine WBC (0-5) /hpf Ur Epithelial Cells (0-5) /lpf Medications Administered Current Inpatient Medications Acetaminophen (Tylenol) 650 mg PO Q4H PRN PRN Reason: Pain or Fever Stop: 09/07/19 19:06 Calcitriol (Rocaltrol) 0.25 mcg PO QAM [facility] Stop: 09/08/19 08:59 Last Admin: 08/09/19 10:55 Dose: Not Given Documented by: Gabapentin (Neurontin) 300 mg PO TID [facility] Stop: 09/07/19 20:59 Last Admin: 08/09/19 10:55 Dose: Not Given Documented by: Potassium Chloride/Dextrose/Sod Cl (D5nss + 20meq Kcl) 20 meq in 1,000 mls @ 80 mls/hr IV .[id number] [facility] Stop: 09/07/19 19:06 Last Admin: 08/09/19 08:26 Dose: 80 mls/hr Documented by: Ioversol (Optiray 320 100ml) 92 ml IV ONCE PRN PRN Reason: Interaction Checking Stop: 08/12/19 15:30 Last Admin: 08/08/19 15:31 Dose: 92 ml Documented by: Levothyroxine Sodium (Synthroid) 50 mcg PO DAILYBB [facility] Stop: 09/08/19 06:29 Last Admin: 08/09/19 05:40 Dose: Not Given Documented by: Magnesium Hydroxide (Milk Of Magnesia) 30 ml PO Q12H PRN PRN Reason: Constipation Stop: 09/07/19 19:06 Morphine Sulfate (Morphine Sulfate) 2 mg IV Q4H PRN PRN Reason: Pain Stop: 08/23/19 03:35 Multivitamins (Multivitamin Tab) 1 tab PO DAILY [facility] Stop: 09/08/19 08:59 Last Admin: 08/09/19 10:56 Dose: Not Given Documented by: Ondansetron HCl (Zofran) 4 mg IV Q6H PRN PRN Reason: Nausea Stop: 09/07/19 19:06 Polyethylene Glycol (Miralax Powder Packet) 17 gm PO DAILY [facility] Stop: 09/08/19 08:59 Last Admin: 08/09/19 10:56 Dose: Not Given Documented by: Risperidone (Risperdal) 0.75 mg PO BID [facility] Stop: 09/07/19 20:59 Last Admin: 08/09/19 10:55 Dose: Not Given Documented by: Vitamin D (Vitamin D3) 1,000 units PO DAILY [facility] Stop: 09/08/19 08:59 Last Admin: 08/09/19 10:56 Dose: Not Given Documented by: Ziprasidone (Geodon) 20 mg PO BID [facility] Stop: 09/07/19 20:59 Last Admin: 08/09/19 10:56 Dose: Not Given Documented by: PG Care Time/CCT Total # of Minutes Spent Total Time Spent with Patient: Total time spent is greater than 50% in coordination of care (as documented) at patient's floor/unit and/or counseling patient: Resident Activity Tracking Resident Involvement: Resident Care Provided Care Provided: Pediatric Care (1) Vomiting Nausea presence: with nausea Vomiting Intractability: intractable Vomiting type: unspecified Qualified Code(s): R11.2 - Nausea with vomiting, unspecified
--- NOTE | 2019-08-09 18:17 | Gastrointestinal Consultation ---
Date of Consultation August 09, 2019 Assessment & Plan (1) Gastrointestinal obstruction: (2) Vomiting: (3) Prader-Willi syndrome: (4) Abdominal pain: Continue ice chips, may advance to clears tonight. NPO after midnight. EGD in the AM for further evaluation of symptoms Add Famotidine 20 mg by mouth twice daily Consider gastric emptying study if no findings on EGD to explain patient's symptoms Discussed case in detail with Dr. Block History of Present Illness Reason for Consultation: SMA Syndrome Attending Physician: Wilman Salas DO History of Present Illness Natacha Mcadams is a 18 yo CF who presented to the ER with complaints of abdominal pain, nausea and vomiting on 08/08/2019. Upon arrival to the ER, she was noted to be anemic, with an elevated WBC count. She underwent multiple imaging studies and it was felt that she had evidence of SMA syndrome. She did have an NG tube placed for decompression, and was seen by calvin. Followup imaging was inconclusive for SMA syndrome, however, she did have a significant symptom improvement following placement of NG tube. She did pull her NG tube overnight. At the time that I saw her, she was feeling much better. She was eating ice chips, and asking for an advancement of her diet. She denied any abdominal pain at the present time, and has not had any further nausea or vomiting. Her family is at her bedside, and states that she has never had any symptoms like this previously. She also has never had any abdominal surgeries or endoscopic workup in the past. She denies any fevers, chills, nausea, vomiting, hematemesis, melena, hematochezia or sick contacts. She has no further complaints. Allergies Allergy/AdvReac Type Severity Reaction Status Date / Time No Known Allergies Allergy Verified 08/08/19 14:37 Home Medications Home Medications Medication Instructions Recorded Confirmed Type calcitriol 0.25 mcg capsule 0.25 mcg PO .q am cap 07/22/18 08/08/19 History gabapentin 300 mg capsule 300 mg PO TID 07/22/18 08/08/19 History levothyroxine 50 mcg capsule 50 mcg PO DAILY 07/22/18 08/08/19 History polyethylene glycol 3350 17 See Rx Instructions .ROUTE 05/20/19 08/08/19 Rx gram/dose oral powder .COMPLEX #510 gram cholecalciferol (vitamin D3) 1,000 unit PO DAILY 08/08/19 08/08/19 History [Vitamin D3] multivitamin 1 tab PO DAILY 08/08/19 08/08/19 History risperidone 0.25 mg PO BID 08/08/19 08/08/19 History risperidone 0.5 mg PO BID 08/08/19 08/08/19 History ziprasidone HCl 20 mg PO BID 08/08/19 08/08/19 History Patient History Medical History Autism (Chronic) Headache (Chronic) OCD (obsessive compulsive disorder) (Chronic) Prader-Willi syndrome (Chronic) Scoliosis (Chronic) Family History Father No problems noted. Mother No problems noted. Social History Preferred Language: Sami Communication Ability: Effective Supervisor [employer] Required: No Beliefs That Will Affect Care: None Current Living Situation: Family Current Living Situation Comment: Mom, Dad, younger brother Feels Safe at Home: Yes Safety Concerns: Feels Safe At This Time Smoking Status: Never smoker Hx Alcohol Use: No Hx Substance Use: No Childhood Exposure to Second-Hand Smoke: No Dental Care, Regularly: Yes Review of Systems Review of Systems: All systems reviewed & are unremarkable except as noted in HPI & below Physical Exam Constitutional: WD/WN, vitals as above Eyes: PERRL, conjunctivae normal, anicteric sclerae ENMT: Ears: no hearing impairment Neck: trachea midline, no thyromegaly Respiratory: normal respiratory effort, lungs clear to auscultation Cardiovascular: RRR, no murmur, no edema Gastrointestinal (Abdomen): normal bowel sounds, soft, nontender, no hepatosplenomegaly Skin: no rashes, warm and dry Results & Data Vital Signs (Past 12 Hours) Vital Signs Temp Pulse Pulse Resp BP Pulse Ox 08/09/19 16:00 37.0 C 61 20 111/61 99 08/09/19 12:15 36.9 C 64 18 93/56 L 96 08/09/19 08:00 36.6 C 73 77 18 89/50 L 96 PG Care Time/CCT Total # of Minutes Spent Total Time Spent with Patient: Total time spent is greater than 50% in coordination of care (as documented) at patient's floor/unit and/or counseling patient: (1) Vomiting Nausea presence: with nausea Vomiting Intractability: intractable Vomiting type: unspecified Qualified Code(s): R11.2 - Nausea with vomiting, unspecified
[2019-08-09] MEDS: FAMOTIDINE 20 MG TAB PO SCH (20:56)
[2019-08-10] MEDS: LEVOTHYROXINE SODIUM 50 MCG TABLET PO SCH (05:49)
[2019-08-10] MEDS ORDERED: D5W AND 1/2NSS + 20MEQ KCL 20 MEQ/1,000 ML BAG IV SCH (08:00)
[2019-08-10] MEDS: ZIPRASIDONE HCL 20 MG CAP PO SCH ×2 (08:17→21:13)
[2019-08-10] MEDS: FAMOTIDINE 20 MG TAB PO SCH ×2 (08:17→21:12)
[2019-08-10] MEDS: GABAPENTIN 300 MG CAP PO SCH ×3 (08:17→21:13)
[2019-08-10] MEDS: risperiDONE 0.5 MG TABLET PO SCH ×2 (08:18→21:12)
--- NOTE | 2019-08-10 08:22 | Surgery Progress Note ---
Date of Service August 10, 2019 Assessment & Plan (1) Vomiting: Hospital day #2 for 18y F presenting with nausea/vomiting/abdominal pain - Abdominal symptoms much improved since admission and VSS - Patient had an US yesterday revealing no evidence of stenosis of the mesenteric vessels however some portions of the SMA are obscured and better visualized on CT scan - GI planning on performing EGD today for further evaluation of her symptoms - Patient seen and examined with Dr. Block Subjective Patient denies abdominal pain, nausea, and has no further episodes of emesis since Saturday. Passed a bowel movement yesterday. Physical Exam Physical Exam: sleepy, but arousable and communicative Results & Data Vital Signs (Past 12 Hours) Vital Signs Temp Pulse Pulse Resp BP Pulse Ox 08/10/19 07:27 36.8 C 47 L 53 L 16 110/80 96 08/10/19 03:33 36.7 C 48 L 17 115/78 98 08/10/19 01:20 48 L 08/09/19 23:51 36.9 C 55 L 18 107/68 98 PG Care Time/CCT Total # of Minutes Spent Total Time Spent with Patient: Total time spent is greater than 50% in coordination of care (as documented) at patient's floor/unit and/or counseling patient: (1) Vomiting Nausea presence: with nausea Vomiting Intractability: intractable Vomiting type: unspecified Qualified Code(s): R11.2 - Nausea with vomiting, unspecified
--- NOTE | 2019-08-10 09:24 | History & Physical Bridge Note ---
Date of Service August 10, 2019 History & Physical Bridge Note I have examined the patient, reviewed the History & Physical and in the interval since the performance of the History & Physical I have noted the following changes of clinical significance: no changes noted. Patient without any further vomiting. Small bm this morning. Denies any chest pains, palpitations, shortness of breath or abdominal pain. PE: A&Ox3. Cardiovascular: RRR without M/R/G. Respiratory: Lungs CTA bilaterally. Gastrointestinal: Abdomen soft, nontender, nondistended. Normal bowel sounds. A/P: NPO for EGD with Dr. Miranda today. Additional recommendations pending results of testing. Supervising Physician Co-Signing Physician Notes Agree with SUSAN Horta as above Abd: Soft, NT, ND, +BS Continue current therapy Proceed with EGD today.
--- NOTE | 2019-08-10 10:04 | Family Medicine Progress Note ---
Date of Service August 10, 2019 Assessment & Plan (1) Abdominal pain: - admitted for abdominal pain with N, repeated vomiting episodes - given Prader-Willi history, she is at increased risk for perforation and distention without "normal" symptoms - multiple liters of fluid removed from stomach last night from NG tube prior to patient pulling NG out - EGD this AM was normal - barium swallow follow through showed no abnormal distention of esophagus, stomach or intestines. - Given improvement of symptoms and negative GI workup, can follow patient in outpatient setting with careful watch by family members for acceleration or return of symptoms - likely acute viral gastroenteritis process that was cleared by system - ordered diet for progression - can D/C if progressing diet appropriately Present on Admission?: Yes (2) Vomiting: - resolved (3) Prader-Willi syndrome: (4) Dehydration: (5) OCD (obsessive compulsive disorder): (6) Hypokalemia: - resolved with IVF - mildly hypernatremic after receiving 0.9% NS IVF yesterday. Stopped IV fluids as patient could tolerate PO ice chips and sips. Supervising Physician Co-Signing Physician Notes I personally examined the patient and verified all esqueda points of history and exam, discussed case, and agree with decision making with Dr Huber. Feeling better. No further nausea, vomiting, abdominal pain. Discussed next steps and plans with patient and mother, mother expressed understanding. Vitals noted, in general she is awake and alert pleasant no acute distress. HEENT normocephalic atraumatic mucous members are moist. Breathing unlabored no accessory muscle use good effort. Skin shows no rashes no pallor or icterus. Abdomen is soft nondistended nontender no masses or organomegaly. Intractable nausea and vomiting/gastric distention -Now improved. Initial CT suggestive of something obstructive such as even possibly SMA syndrome. Clinically doing well, EGD non-diagnostic, order upper GI/barium swallow to look for any impingement or other telltale signs of obstruction. If this is negative, give strong consideration to advancing diet with close clinical follow-up, given that it is just as likely that she had some sort of acute problem such as a post viral syndrome, or transient adhesional obstruction, and that subjecting her to further testing to bandar for rarity such as SMA syndrome may be less beneficial to her than following her very closely but clinically, with further testing if it starts to appear necessary. Otherwise as above Subjective 18 yo F with PMH of Prader-Willi syndrome, admitted over the weekend for abdominal pain, multiple episodes of emesis, and nausea. Denies any symptoms of stomach pain, nausea, chest pain, SOB today. Review of Systems Constitutional: no sweats and no weakness Respiratory: no cough and no pain on inspiration Cardiovascular: no chest pain, no palpitations and no edema Gastrointestinal: no abdominal pain, no nausea, no vomiting, no constipation, no diarrhea/loose stools and no blood in stools Physical Exam Constitutional: well nourished, cooperative and comfortable; no acute distress Parents at bedside, who is very familiar with her condition and provide much of the background information about symptoms and progression. Respiratory: normal respiratory effort; no respiratory distress and no cough Auscultation: lungs clear to auscultation bilaterally; no crackles, no rales, no rhonchi and no wheezes Cardiovascular: Rate/Rhythm: regular rate and regular rhythm Heart Sounds: no click, no gallop, no murmur and no cardiac rub Extremities: normal capillary refill Gastrointestinal (Abdomen): Inspection/Auscultation: abdomen normal to inspection and normal bowel sounds; abdomen not distended and no abdominal edema Percussion/Palpation: abdomen soft; abdomen nontender, no guarding and abdomen not rigid Results & Data Vital Signs (Past 12 Hours) Vital Signs Temp Pulse Pulse Resp BP Pulse Ox 08/10/19 07:27 36.8 C 47 L 53 L 16 110/80 96 08/10/19 03:33 36.7 C 48 L 17 115/78 98 08/10/19 01:20 48 L 08/09/19 23:51 36.9 C 55 L 18 107/68 98 Laboratory Results WBC 8.50 K/uL (4.8-10.8) 08/09/19 07:07 RBC 3.56 M/uL (4.2-5.4) L 08/09/19 07:07 Hgb 10.7 g/dL (12.0-16.0) L D 08/09/19 07:07 Hct 33.6 % (37-47) L 08/09/19 07:07 MCV 94.4 fL (80-100) 08/09/19 07:07 MCH 30.1 pg (25-34) 08/09/19 07:07 MCHC 31.8 g/dL (32-36) L 08/09/19 07:07 RDW Std Deviation 47.2 fL (36.4-46.3) H 08/09/19 07:07 RDW Coeff of Marlys 13.6 % (11.5-14.5) 08/09/19 07:07 Plt Count 169 K/uL (130-400) 08/09/19 07:07 MPV 10.0 fL (7.4-10.4) 08/09/19 07:07 Immature Gran % (Auto) 0.2 % 08/09/19 07:07 Neut % (Auto) 66.8 % 08/09/19 07:07 Lymph % (Auto) 22.6 % 08/09/19 07:07 [place] % (Auto) 10.4 % 08/09/19 07:07 Eos % (Auto) 0.0 % 08/09/19 07:07 Baso % (Auto) 0.0 % 08/09/19 07:07 Immature Gran # (Auto) 0.02 K/uL (0.00-0.02) 08/09/19 07:07 Neut # (Auto) 5.68 K/uL (1.4-6.5) 08/09/19 07:07 Lymph # (Auto) 1.92 K/uL (1.2-3.4) 08/09/19 07:07 [place] # (Auto) 0.88 K/uL (0.11-0.59) H 08/09/19 07:07 Eos # (Auto) 0.00 K/uL (0-0.5) 08/09/19 07:07 Baso # (Auto) 0.00 K/uL (0-0.2) 08/09/19 07:07 Sodium 149 mmol/L (136-145) H 08/09/19 07:07 Potassium 3.6 mmol/L (3.5-5.1) 08/09/19 07:07 Chloride 118 mmol/L (98-107) H 08/09/19 07:07 Carbon Dioxide 27 mmol/L (21-32) 08/09/19 07:07 Anion Gap 4.0 (3-11) 08/09/19 07:07 BUN 10 mg/dl (7-18) 08/09/19 07:07 Creatinine 0.52 mg/dl (0.6-1.2) L 08/09/19 07:07 Est Cr Clr Drug Dosing 156.6 ml/min 08/09/19 07:07 Est GFR ( Amer) > 150.0 08/09/19 07:07 Est GFR (Non-Af Amer) 138.5 08/09/19 07:07 BUN/Creatinine Ratio 19.3 (10-20) 08/09/19 07:07 Glucose 124 mg/dl (70-99) H 08/09/19 07:07 Calcium 8.8 mg/dl (8.5-10.1) D 08/09/19 07:07 Total Bilirubin 0.4 mg/dl (0.2-1) 08/08/19 14:36 AST 12 U/L (15-37) L 08/08/19 14:36 ALT 19 U/L (12-78) 08/08/19 14:36 Alkaline Phosphatase 108 U/L (45-117) 08/08/19 14:36 Total Protein 9.2 gm/dl (6.4-8.2) H 08/08/19 14:36 Albumin 4.5 gm/dl (3.4-5.0) 08/08/19 14:36 Globulin 4.7 gm/dl (2.5-4.0) H 08/08/19 14:36 Albumin/Globulin Ratio 1.0 (0.9-2) 08/08/19 14:36 Lipase 189 U/L (73-393) 08/08/19 14:36 TSH 0.157 uIu/ml (0.300-4.500) L 08/09/19 07:07 Free T4 0.88 ng/dl (0.8-1.6) 08/09/19 07:07 HCG, Qual Negative (Negative) 08/08/19 14:36 Urine Color Yellow 08/08/19 17:45 Urine Appearance Clear (Clear) 08/08/19 17:45 Urine pH >= 9.0 (4.5-7.5) H 08/08/19 17:45 Ur Specific [place] <= 1.005 (1.000-1.030) 08/08/19 17:45 Urine Protein Negative (Negative) 08/08/19 17:45 Urine Glucose (UA) Negative (Negative) 08/08/19 17:45 Urine Ketones Negative (Negative) 08/08/19 17:45 Urine Blood Negative (Negative) 08/08/19 17:45 Urine Nitrite Negative (Negative) 08/08/19 17:45 Urine Bilirubin Negative (Negative) 08/08/19 17:45 Urine Urobilinogen Negative (Negative) 08/08/19 17:45 Ur Leukocyte Esterase Negative (Negative) 08/08/19 17:45 Urine RBC 0-4 /hpf (0-4) 08/08/19 17:45 Urine WBC 5-10 /hpf (0-5) H 08/08/19 17:45 Ur Epithelial Cells 10-20 /lpf (0-5) H 08/08/19 17:45 Urine Bacteria Negative (Negative) 08/08/19 17:45 PG Care Time/CCT Total # of Minutes Spent Total Time Spent with Patient: Total time spent is greater than 50% in coordination of care (as documented) at patient's floor/unit and/or counseling patient: (1) Abdominal pain Abdominal location: generalized Qualified Code(s): R10.84 - Generalized abdominal pain (2) Vomiting Nausea presence: with nausea Vomiting Intractability: intractable Vomiting type: unspecified Qualified Code(s): R11.2 - Nausea with vomiting, unspecified
--- NOTE | 2019-08-10 10:07 | Anesthesiology Consultation ---
Date of Service August 10, 2019 Assessment & Plan (1) Encounter for pre-operative examination: Chart Review Chart Review: Acceptable Risk for Surgery History Surgery Operation Date: 08/10/19 09:00 Proposed Procedures p Esophagogastroduodenoscopy Dr Ruben Miranda, Height/Weight Height: 5 ft 5 in Weight: 57.3 kg Allergies Allergy/AdvReac Type Severity Reaction Status Date / Time No Known Allergies Allergy Verified 08/08/19 14:37 Medications Home Medications Medication Instructions Recorded Confirmed Last Taken calcitriol 0.25 mcg capsule 0.25 mcg PO .q am cap 07/22/18 08/08/19 08/07/19 gabapentin 300 mg capsule 300 mg PO TID 07/22/18 08/08/19 08/07/19 levothyroxine 50 mcg capsule 50 mcg PO DAILY 07/22/18 08/08/19 08/07/19 polyethylene glycol 3350 17 See Rx Instructions .ROUTE 05/20/19 08/08/19 08/07/19 gram/dose oral powder .COMPLEX #510 gram cholecalciferol (vitamin D3) 1,000 unit PO DAILY 08/08/19 08/08/19 08/07/19 [Vitamin D3] multivitamin 1 tab PO DAILY 08/08/19 08/08/19 08/07/19 risperidone 0.25 mg PO BID 08/08/19 08/08/19 08/07/19 risperidone 0.5 mg PO BID 08/08/19 08/08/19 08/07/19 ziprasidone HCl 20 mg PO BID 08/08/19 08/08/19 08/07/19 Active Medications Generic Name Dose Route Start Last Admin Trade Name Patricia PRN Reason Stop Dose Admin Calcitriol 0.25 mcg 08/09/19 09:00 08/09/19 10:55 Rocaltrol PO 09/08/19 08:59 Not Given QAM [facility] Famotidine 20 mg 08/09/19 21:00 08/10/19 08:17 Pepcid PO 09/08/19 20:59 20 mg BID [place] Administration Gabapentin 300 mg 08/08/19 21:00 08/10/19 08:17 Neurontin PO 09/07/19 20:59 300 mg TID [facility] Administration Ioversol 92 ml 08/08/19 15:31 08/08/19 15:31 Optiray 320 100ml IV 08/12/19 15:30 92 ml ONCE PRN Administration Interaction Checking Levothyroxine Sodium 50 mcg 08/09/19 06:30 08/10/19 05:49 Synthroid PO 09/08/19 06:29 Not Given DAILYBB [facility] Multivitamins 1 tab 08/09/19 09:00 08/09/19 10:56 Multivitamin Tab PO 09/08/19 08:59 Not Given DAILY [facility] Polyethylene Glycol 17 gm 08/09/19 09:00 08/09/19 10:56 Miralax Powder Packet PO 09/08/19 08:59 Not Given DAILY [facility] Risperidone 0.75 mg 08/08/19 21:00 08/10/19 08:18 Risperdal PO 09/07/19 20:59 0.75 mg BID [place] Administration Vitamin D 1,000 units 08/09/19 09:00 08/09/19 10:56 Vitamin D3 PO 09/08/19 08:59 Not Given DAILY [facility] Ziprasidone 20 mg 08/08/19 21:00 08/10/19 08:17 Geodon PO 09/07/19 20:59 20 mg BID [facility] Administration NPO Date Last Intake of Fluids: 08/10/19 Time Last Intake of Fluids: 08:00 Last Intake of Fluids Comment: sips of water for am meds Date Last Intake of Solids: 08/09/19 Past Medical History Medical History Autism (Chronic) Headache (Chronic) OCD (obsessive compulsive disorder) (Chronic) Prader-Willi syndrome (Chronic) Scoliosis (Chronic) Exercise / Class Metabolic Activity II 4-5 Yardwork/Stairs/Walk up hill Past Family History Family History Father No problems noted. Mother No problems noted. Social History Smoking Status: Never smoker Hx Alcohol Use: No Hx Substance Use: No Physical Exam Vital Signs Last Vital Signs Temp 36.8 C 08/10/19 07:27 Pulse 53 L 08/10/19 07:27 Resp 16 08/10/19 07:27 BP 110/80 08/10/19 07:27 Pulse Ox 96 08/10/19 07:27 Testing Laboratory Results 08/09/19 07:07 08/09/19 07:07 Urine Color Yellow 08/08/19 17:45 Urine Appearance Clear (Clear) 08/08/19 17:45 Urine pH >= 9.0 (4.5-7.5) H 08/08/19 17:45 Ur Specific [place] <= 1.005 (1.000-1.030) 08/08/19 17:45 Urine Protein Negative (Negative) 08/08/19 17:45 Urine Glucose (UA) Negative (Negative) 08/08/19 17:45 Urine Ketones Negative (Negative) 08/08/19 17:45 Urine Nitrite Negative (Negative) 08/08/19 17:45 Ur Leukocyte Esterase Negative (Negative) 08/08/19 17:45 Urine RBC 0-4 /hpf (0-4) 08/08/19 17:45 Urine WBC 5-10 /hpf (0-5) H 08/08/19 17:45 Ur Epithelial Cells 10-20 /lpf (0-5) H 08/08/19 17:45
--- NOTE | 2019-08-10 10:51 | GI REPORT ---
Patient Name: Natacha Mcadams Procedure Date: 08/10/2019 10:44 AM Date of : 2000 Admit Type: Inpatient Age: 18 Gender: Female Attending MD: Jose L Miranda DO Procedure: Upper GI endoscopy Providers: Jose L Miranda DO Referring MD: Referred Self Indications: Epigastric abdominal pain, Nausea with vomiting Medicines: Monitored Anesthesia Care Complications: No immediate complications. Estimated Blood Loss: Estimated blood loss: none. Procedure: Pre-Anesthesia Assessment: - Prior to the procedure, a History and Physical was performed, and patient medications and allergies were reviewed. The patient's tolerance of previous anesthesia was also reviewed. The risks and benefits of the procedure and the sedation options and risks were discussed with the patient. All questions were answered, and informed consent was obtained. Prior Anticoagulants: The patient has taken no previous anticoagulant or antiplatelet agents. ASA Grade Assessment: II - A patient with mild systemic disease. After reviewing the risks and benefits, the patient was deemed in satisfactory condition to undergo the procedure. After obtaining informed consent, the endoscope was passed under direct vision. Throughout the procedure, the patient's blood pressure, pulse, and oxygen saturations were monitored continuously. The Endoscope was introduced through the mouth, and advanced to the second part of duodenum. The upper GI endoscopy was accomplished without difficulty. The patient tolerated the procedure well. Findings: The esophagus was normal. The stomach was normal. The examined duodenum was normal. Impression: - Normal esophagus. - Normal stomach. - Normal examined duodenum. - No specimens collected. Recommendation: - Return patient [facility] for [facility] care. - Advance diet as tolerated. - Continue present medications. Jose L Miranda DO 08/10/2019 10:51:35 AM This report has been signed electronically. Note Initiated On: 08/10/2019 10:44 AM Number of Addenda: 0 I attest to the content of the Intraoperative Record and orders documented therein, exceptions below {[id number]}
--- NOTE | 2019-08-10 11:19 | Anesthesiology Progress Note ---
Date of Service August 10, 2019 Anesthesia Post Procedure Vital Signs Vital Signs: Temp Pulse Pulse Resp BP Pulse Ox 08/10/19 11:10 50 L 16 115/87 98 08/10/19 10:55 50 L 16 108/76 98 08/10/19 10:20 37.0 C 63 16 110/82 97 08/10/19 07:27 36.8 C 47 L 53 L 16 110/80 96 08/10/19 03:33 36.7 C 48 L 17 115/78 98 08/10/19 01:20 48 L 08/09/19 23:51 36.9 C 55 L 18 107/68 98 08/09/19 20:09 36.5 C 67 18 111/78 97 08/09/19 16:00 37.0 C 68 61 20 111/61 99 08/09/19 12:15 36.9 C 64 18 93/56 L 96 Pain Intensity Bilateral Abdomen: Pain Intensity: 5 Transfer of Care Handoff Completed per policy Notes Mental Status: alert / awake / arousable Patient Amnestic to Procedure: Yes Nausea / Vomiting: adequately controlled Pain: adequately controlled Airway Patency, RR, SpO2: stable & adequate BP & HR: stable & adequate Hydration State: stable & adequate Anesthetic Complications: no major complications apparent
[2019-08-10] MEDS: CALCITRIOL 0.25 MCG CAPSULE PO SCH (14:12)
[2019-08-10] MEDS: MULTIVITAMIN TAB PO SCH (14:12)
[2019-08-10] MEDS: CHOLECALCIFEROL 1,000 UNITS TAB PO SCH (14:12)
[2019-08-10] MEDS: POLYETHYLENE (MIRALAX) 17 GM PACK PO SCH (14:13)
--- NOTE | 2019-08-10 14:27 | Fluoroscopy Report ---
FL upper GI with air RTN CLINICAL HISTORY: 18 years-old Female presenting with compare to admit CT, ?upper intestinal obstruct ion. TECHNIQUE: A standard air contrast upper GI series was performed. Spot images of the esophagus and s tomach were obtained in multiple obliquities both upright and prone. COMPARISON: CT from 08/08/2019. FINDINGS: The patient swallowed barium without difficulty. The esophagus is structurally normal without evidenc e of intrinsic or extrinsic mass. The esophageal mucosal pattern is normal. Distal esophagus mildly d istended. The gastroesophageal junction distends normally. The stomach is normal in configuration and demonstrates normal distensibility. No mass or ulceration is identified. There was no evidence of gastritis. The duodenal bulb and sweep are unremarkable. Prio r distention evident on CT has resolved. Fluoroscopy dosage (mGy): Not available. Fluoroscopy time: 1.8 minutes. Number or time of high level fluoroscopy (HLF), digital spot, or digital subtraction images: 21. IMPRESSION: 1. No convincing evidence of obstructive morphology on the current exam. The prior dilated stomach a nd proximal duodenum are not demonstrated on this exam. 2. Mildly dilated distal esophagus, possibly due to the presence of gas granules and exuberant techn ical distention. Intrinsic dilation of the distal esophagus was not present on CT. Electronically signed by: Amado Betancourt M.D. 08/10/2019 2:25 PM
[2019-08-10] MEDS ORDERED: Nursing to Pharmacy Communication ONE (19:16)
[2019-08-11] MEDS: LEVOTHYROXINE SODIUM 50 MCG TABLET PO SCH (06:04)
--- NOTE | 2019-08-11 07:24 | Anesthesiology Progress Note ---
Date of Service August 11, 2019 Anesthesia Post Procedure Vital Signs Vital Signs: Temp Pulse Pulse Resp BP Pulse Ox 08/11/19 04:24 37 C 61 18 98/66 L 97 08/10/19 23:55 75 08/10/19 23:13 37.1 C 59 L 16 92/60 L 97 08/10/19 19:39 36.3 C L 63 16 99/64 L 97 08/10/19 16:19 36.9 C 61 16 94/64 L 98 08/10/19 11:25 36.7 C 60 16 137/76 99 08/10/19 11:20 51 L 16 114/87 99 08/10/19 11:10 50 L 16 115/87 98 08/10/19 10:55 50 L 16 108/76 98 08/10/19 10:20 37.0 C 63 16 110/82 97 08/10/19 07:27 36.8 C 47 L 53 L 16 110/80 96 Pain Intensity Bilateral Abdomen: Pain Intensity: 5 Notes Mental Status: alert / awake / arousable and participated in evaluation Nausea / Vomiting: adequately controlled Pain: adequately controlled Airway Patency, RR, SpO2: stable & adequate BP & HR: stable & adequate Hydration State: stable & adequate
[2019-08-11] MEDS: MULTIVITAMIN TAB PO SCH (09:11)
[2019-08-11] MEDS: POLYETHYLENE (MIRALAX) 17 GM PACK PO SCH (09:11)
[2019-08-11] MEDS: CALCITRIOL 0.25 MCG CAPSULE PO SCH (09:11)
[2019-08-11] MEDS: CHOLECALCIFEROL 1,000 UNITS TAB PO SCH (09:11)
[2019-08-11] MEDS: FAMOTIDINE 20 MG TAB PO SCH (09:11)
[2019-08-11] MEDS: GABAPENTIN 300 MG CAP PO SCH (09:12)
[2019-08-11] MEDS: ZIPRASIDONE HCL 20 MG CAP PO SCH (09:12)
[2019-08-11] MEDS: risperiDONE 0.5 MG TABLET PO SCH (09:12)
--- NOTE | 2019-08-11 09:51 | Discharge Summary ---
Date of Service August 11, 2019 Admission HPI Per Admitting Provider 18 y/o F c/o n/v. Pt has Prader Willi syndrome and has only had one episode of emesis in her life. She started to feel a bit unwell last night after dinner and then spent the day today with n/v and abd pain. When it persisted, she was brought to the ED. Pt denies fever, SOB, chest pain, c/d, LE pain or swelling. Abd pain is diffuse. She feels her breathing is limited with the NGT, but no noelle SOB prior to or since placement per parents. ED spoke with Dr. Bill Sauceda [phone] who is on-call for the Prader-Willi syndrome foundation. He agreed with the treatment that we were doing in terms of the NG tube placement and fluids. Further recs: if the patient gets worse in any way to have a low threshold to get a CAT scan to rule out perforation. Pts with Prader-Willi have a high pain threshold and also have low muscle tone. He can be reached at the cell phone number above for any further questions throughout the patient stay. Pt was seen on 08/04 for routine wellness exam. There were no new concerns from PCP, however it had been noted that she was having increased somnolence with risperidone tx. This was stoped and ziprasidone was started on 08/05. Her gabapentin was decreased from 400mg TID to 300mg TID as well. Admission Exam Per Admitting Provider Constitutional: WD/WN, vitals as above Eyes: normal visual betts by confrontation and + anicteric sclerae Neck: normal visual inspection and trachea midline Respiratory: normal respiratory effort, lungs clear to auscultation Cardiovascular: Rate/Rhythm: regular rate and regular rhythm Gastrointestinal (Abdomen): Inspection/Auscultation: + abdomen distended Percussion/Palpation: + abdomen tender (diffuse) and abdomen soft Musculoskeletal: Head/Neck/Chest: normocephalic and head atraumatic negative for edema, peripheral pulses intact Skin: no rashes, warm and dry Neurologic: awake; not confused Speech / Cognition: normal speech Psychiatric: Orientation: oriented to person Eye Contact: good eye contact Affect: + tearful affect speech c/w developmental delay Principal Diagnosis Abdominal pain with vomiting Discharge Exam Constitutional well developed, well nourished, well groomed, cooperative and comfortable; not in distress Respiratory normal respiratory effort; no respiratory distress and no retractions Auscultation: lungs clear to auscultation bilaterally; no crackles, no rales and no wheezes Cardiovascular Rate/Rhythm: regular rate and regular rhythm Heart Sounds: + abnormal S1, + abnormal S2, no abnormal opening sounds, no click, no gallop and no murmur Extremities: normal capillary refill Gastrointestinal (Abdomen) Inspection/Auscultation: abdomen normal to inspection; abdomen not distended Percussion/Palpation: abdomen soft; abdomen nontender, no guarding and abdomen not rigid Psychiatric Orientation: alert Eye Contact: good eye contact Affect: euthymic affect at baseline mental status and behavior Discharge Data Allergies Allergy/AdvReac Type Severity Reaction Status Date / Time No Known Allergies Allergy Verified 08/08/19 14:37 Consultations 08/08/19 16:58 ED Decision to Admit Stat 08/08/19 19:07 Consult Case Management - Discharge Planning Routine Consult Gastroenterology Routine Consult General Surgery Routine Procedures Performed Operation Date: 08/10/19 09:00 Actual Procedures p Esophagogastroduodenoscopy - Jose L Sinha Case, DO Ordered Studies 08/08/19 15:14 CT abd pelvis IV con only Stat 08/09/19 08:38 US duplex mesenteric Routine 08/10/19 13:30 FL upper GI with air RTN Routine Hospital Course (1) Abdominal pain: Pt is a 18 yo F with PMH significant for Prader Willi syndrome, who presented to the ED for severe abdominal pain, repeated episodes of nonbloody nonbiliary emesis and nausea. She was admitted and found to be dehydrated secondary to the repeated emesis, this resolved with IV fluids. CT scan of her abdomen and pelvis in the ED showed a distended stomach full of fluid as well as concern for SMA syndrome constricting small bowel, possibly causing the nausea/vomiting. NG tube placement led to removal of multiple litres of brownish fluid from the stomach. She underwent an abdominal ultrasound and KUB to further investigate whether SMA syndrome could be the source of her pain and discomfort; both studies were inconclusive for SMAS and did not show any signs of perforation, obstruction, abnormal distension or thickening that would elucidate the cause of complaints. The patient then underwent an EGD with GI, which found no abnormalities within the mucosal lining of the esophagus or stomach. Barium swallow with a small bowel follow through also found no evidence of distension, obstruction, mechanical flow problems or otherwise to elucidate specific cause for pain and nausea. During the passage of all these tests, the patient symptomatically improved greatly, to the point of tolerating PO fluid and dietary intake without nausea, vomiting, pain. Throughout the admission one of the parents were by the bedside and very involved in her care, and were updated along the various steps. All other chronic medical problems were managed with support and home medication therapies. Pt to follow up with GI outpatient regarding a nuclear gastric emptying study to evaluate a working diagnosis of gastroparesis. (2) Prader-Willi syndrome: (3) Dehydration: (4) OCD (obsessive compulsive disorder): Total Time Total Time Spent Total Time Spent (In Minutes): <30 Discharge Plan Discharge Items Patient Disposition: Home - Self-Care Reason For Visit: N/V Discharge Diagnosis: Abdominal pain Activity: Resume your previous activity Non-emergency contact: Primary Care Provider Call non-emergency contact if: you have any medication questions and your symptoms worsen Follow-up/Referrals: Jose L Miranda DO [Physician] - 08/25/19 1:00 pm (Please, follow up at [facility] Office with Denise DAVIS on SaturdayAugust 25 at 1:00 pm. *The office is located at [address] [place] [address] in [facility]). If you need to change this appointment, call the office at [phone].) Jania Franklin MD [Primary Care Provider] - 08/14/19 12:30 pm (Please, follow up at Dr. Franklin office with Yohana Wolf PA-C on SaturdayAugust 14 at 12:30 pm. *If you need to change this appointment, call their office at [phone].) Diet: Regular Addtl Attending Provider Instructions: You were admitted to the hospital for abdominal pain that led to multiple episodes of vomiting and nausea. After admission we placed a tube from your nose to your stomach that helped to drain multiple liters of fluid from your stomach which appeared to help relieve some of the stomach pain. The CT scan of the abdomen and pelvis showed no obstruction of the small or large bowel. There was some concern for Superior Mesenteric Artery Syndrome (SMAS) which would be compression of the small bowel by an artery that comes off of the aorta at a very sharp angle. We did a follow up ultrasound of the abdomen and xray of the abdomen which did not show concern for any masses, perforation, obstruction or blockage of the intestines. We also performed an upper endoscopy (EGD) to take a direct view of the beginning of the small intestine, stomach and esophagus to see if there was any irritation to the tissue lining that could have caused all the nausea, vomiting and pain. The scope came back completely normal with no signs of irritation, bleeding or ulcers. Since that was negative, the gastroenterology team (stomach doctors) decided the next best step would be to do a small bowel follow through with barium. This is a test that consists of taking multiple Xray pictures of the esophagus and abdomen after swallowing contrast fluid to see how long it takes to get from one part of the digestive system to the next. It would be reasonable to see any sort of blockage, functional slowdown or abnormality on this test because it looks at both structure and proper function of the digestive tract. The results of this test were also normal and did not show any abnormal stretching or distension, blockage, masses, or slow down in any parts of the digestive tract. Given that all of these tests were normal and Natacha symptomatically improved after her stomach was emptied out, we are more comfortable sending her home at this time. While we still do not know the exact cause of the initial vomiting episodes, we were able to rule out all of the dangerous and concerning possibilities in someone with a history of Prader-Willi syndrome. Further testing at this point to try and find a cause would likely put additional strain on Natacha and may not lead to any further knowledge. At this time, since she is doing well clinically and is able to keep food and water down on her own, it makes sense to send her home and keep a watchful eye; there is nothing requiring that she stay in the hospital. Common things being common, she likely had a temporary viral illness that irritated her stomach and digestive tract which caused the vomiting and general feeling of being unwell. If she has sudden episodes of vomiting, bloody bowel movements, stomach pain that does not go away, do not hesitate to bring her back to the hospital. We did not change or add any medications to her regimen, but you should still follow up with her primary care doctor to ensure that she has completely resolved her symptoms and stays at her baseline. Pending Studies at Discharge: No Stand-Alone Forms: My [facility] Medications and DC Order Prescriptions: Continued calcitriol 0.25 mcg capsule 0.25 mcg PO .q am RF: 0 gabapentin 300 mg capsule 300 mg PO TID RF: 0 levothyroxine 50 mcg capsule 50 mcg PO DAILY RF: 0 polyethylene glycol 3350 17 gram/dose powder See Rx Instructions .ROUTE .COMPLEX Qty: 510 RF: 3 multivitamin Tablet 1 tab PO DAILY RF: 0 risperidone 0.25 mg tablet 0.25 mg PO BID RF: 0 ziprasidone HCl 20 mg capsule 20 mg PO BID RF: 0 risperidone 0.5 mg tablet 0.5 mg PO BID RF: 0 cholecalciferol (vitamin D3) [Vitamin D3] 1,000 unit Capsule 1,000 unit PO DAILY RF: 0 Discharge Orders: Discharge Order (Routine); Ordered 08/11/19 Ordered By: Jael Huber Admission Data Admit Date/Time: 08/08/19 17:36 Attending Provider: Wilman Salas Admit Provider: Leigha Garcia Primary Care Provider: Jania Franklin Other Providers: Leigha Garcia ; Jose L Miranda ; John Block ; Jael Huber Other Interventions: Discharge Summary Assessment (RN) Last Done: 08/11/19 12:47 DC Date/Time DO NOT enter until pt leaves facility: 08/11/19 13:11 Supervising Physician Co-Signing Physician Notes I personally examined the patient and verified all esqueda points of history and exam, discussed case, and agree with decision making with Dr Huber. Feeling better. No further nausea, vomiting, abdominal pain. eating well since yesterday afternoon, wants to stay to eat lunch today then go home Discussed next steps and plans with patient and mother, mother expressed understanding. Vitals noted, in general she is awake and alert pleasant no acute distress. HEENT normocephalic atraumatic mucous members are moist. Breathing unlabored no accessory muscle use good effort. Skin shows no rashes no pallor or icterus. Intractable nausea and vomiting/gastric distention -Now improved. Initial CT suggestive of something obstructive such as even possibly SMA syndrome. Clinically doing well, EGD non-diagnostic, upper GI/barium swallow did not show any impingement or other telltale signs of obstruction. Discussed utility of inpatient for further testing versus outpatient with close follow-up and further testing is warranted with mother both yesterday and today. Given that the patient is clinically doing quite well and eating and drinking well, we agreed that home with close follow-up and further testing for things such as delayed gastric emptying or SMA syndrome if her symptoms at all recur would be the most prudent approach for her overall well-being. Discussed to have her return to the hospital right away with any abdominal distention or vomiting, but given that she is eating multiple meals and is doing well, it appears quite safe to get her home. Otherwise as above Resident Activity Tracking Resident Involvement: Resident Care Provided Care Provided: Adult Hospital Medicine
[2019-08-11 10:07] LABS: BUN Creatinine Ratio 10.6 (10-20); Blood Urea Nitrogen 6 mg/dl (7-18); Calcium 9.4 mg/dl (8.5-10.1); Carbon Dioxide 30 mmol/L (21-32); Chloride 104 mmol/L (98-107); Creatinine Clr Calc Pharmacy 125.3 ml/min; Est GFR (African American) > 150.0; Est GFR (Non-African American) 131.4; Glucose 90 mg/dl (70-99); Potassium 3.7 mmol/L (3.5-5.1); Sodium 141 mmol/L (136-145)
== END 2019-08-11 13:11 | disposition home or self-care (01) | DRG 392 ==
LOC: ED 13:56 → 2N 17:36 → SUATTDRO 17:36 → 2N 18:40